=== PATIENT | male | born 1990 | race Caucasian/White ===

== ENCOUNTER → 2020-04-10 | Outpatient (CLI) | payer OTHER ==
[2020-04-10 12:34] LABS: BASO # 0.1 10^3/uL (0.0-0.2); BASO % 0.7 % (0.0-1.0); EOS # 0.1 10^3/uL (0.0-0.5); EOS % 1.9 % (0.0-3.0); HEMATOCRIT 43.5 % (42.0-52.0); HEMOGLOBIN 14.6 g/dl (13.5-17.5); LYMPH # 2.5 10^3/uL (1.5-5.0); LYMPH % 33.2 % (24.0-44.0); MEAN CORPUSCULAR HGB CONC 33.6 g/dl (32.0-36.5); MEAN CORPUSCULAR VOLUME 86.3 fl (80.0-96.0); MONO # 0.5 10^3/uL (0.0-0.8); MONO % 6.6 % (0.0-5.0); NEUTROPHILS # 4.3 10^3/uL (1.5-8.5); NEUTROPHILS % 57.3 % (36.0-66.0); PLATELET COUNT, AUTOMATED 242 10^3/uL (150-450); RED BLOOD COUNT 5.04 10^6/uL (4.30-6.10); WHITE BLOOD COUNT 7.5 10^3/uL (4.0-10.0)
[2020-04-10 13:12] LABS: ALBUMIN 4.3 GM/DL (3.2-5.2); ALT/SGPT 18 U/L (12-78); BILIRUBIN,TOTAL 1.1 MG/DL (0.2-1.0); BLOOD UREA NITROGEN 12 MG/DL (7-18); CALCIUM LEVEL 9.1 MG/DL (8.5-10.1); CARBON DIOXIDE LEVEL 25 MEQ/L (21-32); CHLORIDE LEVEL 106 MEQ/L (98-107); CHOLESTEROL LEVEL 138 MG/DL (<200); CHOLESTEROL RISK RATIO 3.631 (<5); CREATININE FOR GFR 0.95 MG/DL (0.70-1.30); GLOMERULAR FILTRATION RATE > 60.0 (>60); GLUCOSE, FASTING 80 MG/DL (70-100); HDL CHOLESTEROL 38 MG/DL (>40); LDL CHOLESTEROL 79 MG/DL (<100); NON-HDL-C 100 MG/DL; POTASSIUM SERUM 3.8 MEQ/L (3.5-5.1); SODIUM LEVEL 137 MEQ/L (136-145); TOTAL PROTEIN 7.2 GM/DL (6.4-8.2); TRIGLYCERIDES LEVEL 105 MG/DL (<150)
[2020-04-12 16:09] LABS: TESTOSTERONE FREE (DIRECT) 12.6 pg/mL (9.3-26.5)
== END ==
LOC: M LAB 11:45
PROVIDERS: ATTEND Physician Assistant
DX: Z00.00 Encounter for general adult medical examination without abnormal findings (principal); R68.82 Decreased libido

== ENCOUNTER 2020-12-02 21:43 | Emergency (ER) | payer OTHER ==
[~2020-12-02] VITALS: Ht 175.3 cm; Wt 90.9 kg
[2020-12-02 21:47] VITALS: BP 137/75
[2020-12-02] MEDS ORDERED: CIAL20TA PO (21:53)
--- NOTE | 2020-12-02 23:25 | REPVR ---
PROCEDURE INFORMATION: Exam: XR Left Ankle Exam date and time: 12/02/2020 10:16 PM Age: 30 years old Clinical indication: Other: Fell off a walkway TECHNIQUE: Imaging protocol: XR Left ankle. Views: 3 or more views. COMPARISON: No relevant prior studies available. FINDINGS: Bones/joints: Normal osseous alignment. No acute fracture. No asymmetric ankle mortise widening. Fifth metatarsal base is intact. No osteochondral lesion of the talar dome. No evidence of osseous tarsal coalition. No concerning osseous lesion. Joint spaces are well maintained. Soft tissues: Anterolateral ankle soft tissue swelling is present. IMPRESSION: Anterolateral ankle soft tissue swelling. No evidence of acute fracture. Electronically signed by: Chalino Guerra On 12/02/2020 23:24:41 PM
== END 2020-12-03 03:19 | disposition left against medical advice (07) ==
LOC: M ED 21:43
DX: Z53.21 Procedure and treatment not carried out due to patient leaving prior to being seen by health care provider (principal)